=== PATIENT | male | born 1975 | race Caucasian/White ===

== ENCOUNTER 2024-03-27 19:23 | Emergency (ER) | payer SELFPAY ==
[~2024-03-27] VITALS: Ht 182.9 cm; Wt 87.3 kg
[2024-03-27 19:35] VITALS: BP 107/71
[2024-03-27 19:46] VITALS: BP 138/82
[2024-03-27] MEDS ORDERED: CYCLOBENZAPRINE HCL 5 MG TAB PO ONE (19:50)
[2024-03-27] MEDS ORDERED: KETOROLAC TROMETHAMINE 30 MG/ML SDV IV ONE (19:50)
[2024-03-27] MEDS ORDERED: DEXAMETHASONE SOD. PHOSPHATE 10 MG/ML VIAL IV ONE (19:50)
[2024-03-27] MEDS ORDERED: traMADol HCL 50 MG/TAB PO ONE (19:50)
[2024-03-27] MEDS ORDERED: TRAMADOL HCL50 MG PO (21:05)
[2024-03-27] MEDS ORDERED: FLEXERIL5 M1 PO (21:05)
[2024-03-27] MEDS ORDERED: TORADOL PO (21:05)
[2024-03-27 21:15] VITALS: BP 138/82
== END 2024-03-27 21:15 | disposition home or self-care (01) | DRG 563 ==
LOC: ED 19:23
DX: S39.012A Strain of muscle, fascia and tendon of lower back, initial encounter (principal); M47.26 Other spondylosis with radiculopathy, lumbar region; I10 Essential (primary) hypertension; X50.0XXA Overexertion from strenuous movement or load, initial encounter; Z95.5 Presence of coronary angioplasty implant and graft; Z72.0 Tobacco use